=== PATIENT | female | born 1975 | race American Indian/Alaskan Native ===

== ENCOUNTER 2017-10-03 19:04 | Emergency (ER) | payer SELFPAY ==
[2017-10-03 19:04] VITALS: BMI 34.0
[2017-10-03 19:50] VITALS: BP 119/86; PULSE 82; RESP 18; TEMP 98.3; O2SAT 97
[2017-10-03 20:25] LABS: HCG,QUALITATIVE URINE NEGATIVE (NEGATIVE)
[2017-10-03 20:30] LABS: SQUAMOUS EPITHIAL 3 /hpf (0-5); URINE BACTERIA FEW (<OCC); URINE BILIRUBIN NEGATIVE (NEGATIVE); URINE BLOOD 2+ (NEGATIVE); URINE CLARITY Hazy (Clear); URINE COLOR Yellow (YELLOW); URINE GLUCOSE (UA) NORMAL (Normal); URINE LEUKOCYTE ESTERASE 1+ Leu/uL (Negative); URINE PROTEIN 1+ mg/dL (NEGATIVE); URINE UROBILINOGEN NORMAL mg/dL (0.2-1.0)
--- NOTE | 2017-10-03 20:57 | C.PDOC ---
History Of Present Illness 42 year old female presents to the ED c/o dysuria, hematuria, urinary frequency associated with suprapubic pain that started yesterday. Patient denies fever, chills, nausea, vomiting, diarrhea, back pain. Time Seen by Provider: 10/03/17 19:55 Chief Complaint (Nursing): Female Genitourinary History Per: Patient History/Exam Limitations: no limitations Onset/Duration Of Symptoms: Days Current Symptoms Are (Timing): Still Present Quality Of Discomfort: "Pain" Associated Symptoms: Urinary Symptoms Alleviating Factors: None Recent travel outside of the [place]: No Additional History Per: Patient Abnormal Vaginal Bleeding: No Past Medical History Reviewed: Historical Data, Nursing Documentation, Vital Signs Vital Signs: Last Vital Signs Temp 98.3 F 10/03/17 19:44 Pulse 82 10/03/17 19:44 Resp 18 10/03/17 19:44 BP 119/86 10/03/17 19:44 Pulse Ox 97 10/03/17 23:47 - Medical History PMH: Asthma Surgical History: Tonsillectomy Family History: States: Unknown Family Hx - Social History Hx Tobacco Use: Yes Hx Alcohol Use: Yes Hx Substance Use: No - Immunization History Hx Tetanus Toxoid Vaccination: No Hx Influenza Vaccination: Yes (02/2015) Hx Pneumococcal Vaccination: No Review Of Systems Constitutional: Negative for: Fever, Chills Gastrointestinal: Positive for: Abdominal Pain. Negative for: Nausea, Vomiting , Diarrhea Genitourinary: Positive for: Dysuria, Frequency, Hematuria Musculoskeletal: Negative for: Back Pain Skin: Negative for: Rash Physical Exam - Physical Exam Appears: Non-toxic, No Acute Distress Skin: Normal Color, Warm, Dry Head: Atraumatic, Normacephalic Eye(s): bilateral: Normal Inspection Nose: No Discharge Oral Mucosa: Moist Gastrointestinal/Abdominal: Soft, No Tenderness, No Guarding, No Rebound Back: No CVA Tenderness Pelvic: Other (deferred) Neurological/Psych: Oriented x3 Gait: Steady ED Course And Treatment O2 Sat by Pulse Oximetry: 97 (On RA) Pulse Ox Interpretation: Normal Progress Note: Plan: - UA. - Macrobid 100 mg PO. - Pyridium 100 mg PO. Patient's urine showed an UTI which patient was treated for in the ED with macriobid and pyridium. Patient was advised to follow up with her PMD in 2 days for further evaluation. Disposition - Disposition Referrals: [facility] [Outside] Disposition: HOME/ ROUTINE Disposition Time: 20:55 Condition: STABLE Additional Instructions: Increase PO fluids Take meds as directed Follow up in clinic Return to ER if worse Prescriptions: Nitrofurantoin Macrocrystals [Macrobid] 1 cap PO BID #14 cap Phenazopyridine HCl [Pyridium] 100 mg PO TID #5 tab Instructions: Urinary Tract Infection, Adult (DC) Forms: [employer] (Occitan) - Clinical Impression Clinical Impression: Urinary tract infection - PA / STORE HOST / Resident Statement MD/DO has reviewed & agrees with the documentation as recorded. - Scribe Statement The provider has reviewed the documentation as recorded by the Scribe Bam Cavanaugh All medical record entries made by the Scribe were at my direction and personally dictated by me. I have reviewed the chart and agree that the record accurately reflects my personal performance of the history, physical exam, medical decision making, and the department course for this patient. I have also personally directed, reviewed, and agree with the discharge instructions and disposition.
== END 2017-10-03 21:00 | disposition home or self-care (01) ==
LOC: SUPCPDRO 19:04 → C.ER 19:04
DX: N39.0 Urinary tract infection, site not specified (principal)

== ENCOUNTER 2018-06-04 13:36 | Emergency (ER) | payer MEDICAID, OTHER ==
[2018-06-04 13:36] VITALS: BMI 34.0
[2018-06-04 14:00] VITALS: BP 121/76; PULSE 68; RESP 24; TEMP 98.6; O2SAT 99
--- NOTE | 2018-06-04 15:45 | RAD ---
Date of service: 2018-06-04 14:18:52 HISTORY: cough r/o infiltrate COMPARISON: No prior. TECHNIQUE: Chest PA and lateral FINDINGS: LUNGS: Vague patchy opacity seen in the left lung base may represent recurrent atelectasis and/or infiltrate. Suspect minimal right basilar atelectasis PLEURA: No significant pleural effusion identified. No pneumothorax apparent. CARDIOVASCULAR: No aortic atherosclerotic calcification present. Normal cardiac size. No pulmonary vascular congestion. OSSEOUS STRUCTURES: No significant abnormalities. VISUALIZED UPPER ABDOMEN: Normal. OTHER FINDINGS: None. IMPRESSION: Vague patchy opacity seen in the left lung base may represent recurrent atelectasis and/or infiltrate. Suspect minimal right basilar atelectasis
--- NOTE | 2018-06-04 18:31 | C.PDOC ---
History Of Present Illness 42 y/o female presents to the ED complaining of a productive cough for 2 weeks. States she had a fever last week. Does not remember her temperature but reports she did take it at home. Patient tried taking [id number] meds with no relief. She denies any SOB, chest pain, or wheezing. No recent travel. No known sick contacts. Patient admits she smokes 3 cigarettes per day. Time Seen by Provider: 06/04/18 14:05 Chief Complaint (Nursing): Cough, Cold, Congestion History Per: Patient History/Exam Limitations: no limitations Onset/Duration Of Symptoms: Days Current Symptoms Are (Timing): Still Present Associated Symptoms: Fever, Cough Past Medical History Reviewed: Historical Data, Nursing Documentation, Vital Signs Vital Signs: Last Vital Signs Temp 98.6 F 06/04/18 13:59 Pulse 68 06/04/18 13:59 Resp 24 06/04/18 13:59 BP 121/76 06/04/18 13:59 Pulse Ox 99 06/04/18 13:59 - Medical History PMH: Asthma Surgical History: Tonsillectomy Family History: States: Unknown Family Hx - Social History Hx Tobacco Use: Yes Hx Alcohol Use: Yes Hx Substance Use: No - Immunization History Hx Tetanus Toxoid Vaccination: Yes Hx Influenza Vaccination: No Hx Pneumococcal Vaccination: No Review Of Systems Except As Marked, All Systems Reviewed And Found Negative. Constitutional: Positive for: Fever (none today) Cardiovascular: Negative for: Chest Pain Respiratory: Positive for: Cough, Sputum. Negative for: Shortness of Breath, Wheezing Gastrointestinal: Negative for: Nausea, Vomiting, Diarrhea Physical Exam - Physical Exam Appears: Non-toxic, No Acute Distress Skin: Normal Color, Warm, Dry Head: Atraumatic, Normacephalic Eye(s): bilateral: Normal Inspection, PERRL, EOMI Oral Mucosa: Moist Neck: Normal ROM Chest: Symmetrical Cardiovascular: Rhythm Regular, No Murmur Respiratory: No Accessory Muscle Use, No Rhonchi, Wheezing (minimal expiratory wheeze bilaterally), Other (Good air entry) Gastrointestinal/Abdominal: Soft, No Tenderness, No Distention Extremity: Bilateral: Atraumatic, Normal Color And Temperature Neurological/Psych: Oriented x3, Normal Speech ED Course And Treatment O2 Sat by Pulse Oximetry: 99 (RA) Pulse Ox Interpretation: Normal - Other Rad CXR X-Ray: Read By Radiologist Interpretation: Accession No. : [id number]. Patient Name / ID : SHANIKA Coelho / [id number]. Exam Date : 06/04/2018 14:18:52 ( Approved ). Study Comment : Sex / Age : F / 42Y. Creator : Christiano Burks MD. Dictator : Christiano Burks MD. Wood Finisher : Environmental Auditor : Christiano Burks MD. Approver2 : Report Date : 06/04/2018 15:42:18. My Comment : . Date of service: 2018-06-04 14:18:52. HISTORY: cough r/o infiltrate. COMPARISON: No prior. TECHNIQUE: Chest PA and lateral. FINDINGS: LUNGS: Vague patchy opacity seen in the left lung base may represent recurrent atelectasis and/or infiltrate. Suspect minimal right basilar atelectasis. PLEURA: No significant pleural effusion identified. No pneumothorax apparent. CARDIOVASCULAR: No aortic atherosclerotic calcification present. Normal cardiac size. No pulmonary vascular congestion. OSSEOUS STRUCTURES: No significant abnormalities. VISUALIZED UPPER ABDOMEN: Normal. OTHER FINDINGS: None. IMPRESSION: Vague patchy opacity seen in the left lung base may represent recurrent atelectasis and/or infiltrate. Suspect minimal right basilar atelectasis Medical Decision Making Medical Decision Making: Impression: Productive cough for 2 weeks, r/o PNA Initial Plan: --Chest X-Ray CXR results discussed with patient. Patient given initial dose of PO Zithro in the ER. Plan is to d/c home with antibiotics and tessalon perles. Patient instructed to follow up with PMD in 1-2 days. Disposition Counseled Patient/Family Regarding: Studies Performed, Diagnosis, Need For Followup, Rx Given - Disposition Referrals: [facility] Vickie Obrien, [Non-Staff] - Disposition: HOME/ ROUTINE Disposition Time: 14:35 Condition: GOOD Additional Instructions: SUE Coelho SHANIKA, thank you for letting us take care of you today. The emergency medical care you received today was directed at your acute symptoms. If you were prescribed any medication, please fill it and take as directed. It may take several days for your symptoms to resolve. Return to the Emergency Department if your symptoms worsen, do not improve, or if you have any other problems. Please contact your doctor or call one of the physicians/clinics you have been referred to that are listed on the Patient Visit Information form that is included in your discharge packet. Bring any paperwork you were given at discharge with you along with any medications you are taking to your follow up visit. Our treatment cannot replace ongoing medical care by a primary care provider outside of the emergency department. Thank you for allowing the [facility] team to be part of your care today. Faith russop with your primary care doctor in 2-3 days for re-evaluation and further management. Prescriptions: Azithromycin [Zithromax] 250 mg PO DAILY #4 tab Benzonatate [Tessalon Perle] 100 mg PO Q8 PRN #20 capsule PRN Reason: Cough Instructions: Pneumonia, Adult (DC) Forms: [employer] (Tanzanian) - POA Present On Arrival: None - Clinical Impression Clinical Impression: Community acquired pneumonia - Scribe Statement The provider has reviewed the documentation as recorded by the Pamela Stone Provider Attestation: All medical record entries made by the Pamela were at my direction and personally dictated by me. I have reviewed the chart and agree that the record accurately reflects my personal performance of the history, physical exam, medical decision making, and the department course for this patient. I have also personally directed, reviewed, and agree with the discharge instructions and disposition.
== END 2018-06-04 14:56 | disposition home or self-care (01) ==
LOC: C.ER 13:36
DX: J18.9 Pneumonia, unspecified organism (principal); F17.210 Nicotine dependence, cigarettes, uncomplicated

== ENCOUNTER 2018-09-06 22:22 | Emergency (ER) | payer MEDICAID, OTHER | END 2018-09-07 01:42 | disposition home or self-care (01) | LOC: C.ER 09-07 01:42 ==